=== PATIENT | female | born 1990 | race African-American/Black ===

== ENCOUNTER 2018-07-21 08:54 | Outpatient (CLI) | payer MEDICAID ==
--- NOTE | 2018-07-21 10:14 | ULT ---
US Pelvic Transvag W Doppler History: [Pelvic pain] Comparison: Pelvic ultrasound 2013 Findings: Real-time grayscale and color evaluation of the pelvis performed transabdominal and transva ginal approach. The uterus measures 10 x 4.4 x 5.7 cm. There is a fundal calcified fibroid measuring up to 2.6 cm. Th ere is an anterior lower uterine body fibroid measuring 2 cm. Image thickness is 1.5 cm. Ovaries are normal with adequate vascular flow. Both ovarian cyst is prese nt measuring up to 1.9 cm. Trace free fluid in the pelvis. Impression: Fundal peripherally calcified fibroid as well as an anterior uterine body fibroid.
== END 2018-07-21 08:55 | disposition home or self-care (01) ==
LOC: BICULT 08:54
PROVIDERS: ATTEND Family Medicine
DX: R10.2 Pelvic and perineal pain (principal); D25.9 Leiomyoma of uterus, unspecified
CPT/HCPCS: 76856

== ENCOUNTER 2023-01-30 15:27 | Emergency (ER) | payer OTHER, SELFPAY ==
[2023-01-30 16:48] LABS: #Monocytes 0.5 thou/uL (0.11-0.59); #Neutrophils 4.3 thou/uL (1.40-6.50); %Basophils 0.3 % (0.0-1.0); %Eosinophils 0.3 % (0.0-10.0); %Lymphocytes 20.3 % (21.0-51.0); %Monocytes 8.8 % (0.0-10.0); %Neutrophils 70.1 % (42.0-75.0); Hematocrit 34.1 % (36.0-47.0); Hemoglobin 11.3 g/dL (12.0-16.0); Mean Corpuscular HGB CONC 33.1 g/dL (32.0-36.0); Mean Corpuscular Hemoglobin 27.8 pg (27.0-31.0); Mean Platelet Volume 9.9 fL (7.4-10.4); Platelet Count 291 10x3/uL (130-400); RBC Distribution Width 13.9 % (11.5-14.5); Red Blood Cell (RBC) Count 4.06 mill/uL (4.20-5.40); White Blood Cell (WBC) Count 6.2 10x3/uL (4.8-10.8)
[2023-01-30 17:17] LABS: ALT (SGPT) 14 U/L (8-55); AST (SGOT) 21 U/L (5-34); Albumin 4.3 g/dL (3.5-5.0); Alkaline Phosphatase 74 U/L (40-110); Anion Gap 10 mmol/L (10-20); BUN (Urea Nitrogen) 8 mg/dL (7.0-18.7); Bilirubin, Total 0.2 mg/dL (0.2-1.2); Calc. Creatinine Clearance 0 mL/min (70-130); Calcium 9.2 mg/dL (7.8-10.44); Carbon Dioxide 21 mmol/L (22-29); Chloride 103 mmol/L (98-107); Estimated GFR 113; Globulin 3.6 g/dL (2.4-3.5); Glucose 99 mg/dL (70-105); Magnesium 1.8 mg/dL (1.6-2.6); Potassium 3.2 mmol/L (3.5-5.1); Protein, Total 7.9 g/dL (6.0-8.3); Sodium 131 mmol/L (136-145)
[2023-01-30 17:25] LABS: Bacteria/HPF 4+ HPF (None Seen); Bilirubin Negative (Negative); Blood, Urine Negative (Negative); CAUTI Indications for Culture Alt mental st,lethar; Clarity Clear (Clear); Glucose, Urine (Dipstick) Normal (Negative); Ketone, Urine 20 mg/dL (Negative); Leukocyte 250 Leu/uL (Negative); Nitrite Negative (Negative); Protein, Urine (Dipstick) Negative (Neg-Trace); RBC/HPF 0-3 HPF (0-3); Specific Gravity, Urine 1.013 (1.002-1.036); Squamous Epithelial 0-3 HPF (0-3); Urobilinogen Normal mg/dL (Less than 2); WBC/HPF 0-3 HPF (0-3)
[2023-01-30 17:27] LABS: Urine Culture Reflex No No
[2023-01-30] MEDS ORDERED: Potassium Chloride 20 MEQ TAB ONE (17:42)
== END 2023-01-30 20:47 | disposition left against medical advice (07) ==
LOC: ERS 15:27
DX: R42 Dizziness and giddiness (principal)
CPT/HCPCS: 36415; 80053; 81001; 83735; 84702; 85025; 93005